=== PATIENT | female | born 1985 | race Two or more races ===

== ENCOUNTER 2018-06-25 15:16 | Emergency (ER) | payer OTHER ==
[~2018-06-25] VITALS: Ht 157.5 cm; Wt 129.5 kg
[2018-06-25] MEDS ORDERED: METOCLOPRAMIDE 5 MG/ML, 2ML IM ONE (16:00)
[2018-06-25] MEDS ORDERED: DIPHENHYDRAMINE 25 MG CAPSULE PO ONE (16:00)
[2018-06-25] MEDS ORDERED: SODIUM CHLORIDE FLUSH 10ML SYR IVF ONE (16:30)
[2018-06-25] MEDS ORDERED: SODIUM CHLORIDE 0.9% 1,000ML IVBOLUS ONE (16:30)
[2018-06-25] MEDS ORDERED: METOCLOPRAMIDE 5 MG/ML, 2ML ONE (16:37)
[2018-06-25] MEDS ORDERED: DIPHENHYDRAMINE 25 MG CAPSULE ONE (16:38)
[2018-06-25] MEDS ORDERED: DIPHENHYDRAMINE 50 MG/ML, 1ML ONE (16:41)
[2018-06-25] MEDS ORDERED: KETOROLAC 30 MG/1 ML IVPush STA (16:52)
[2018-06-25] MEDS ORDERED: METOCLOPRAMIDE 5 MG/ML, 2ML IVPush ONE (17:00)
[2018-06-25] MEDS ORDERED: DIPHENHYDRAMINE 50 MG/ML, 1ML IVPush ONE (17:00)
[2018-06-25 18:06] VITALS: BP 121/73
== END 2018-06-25 19:10 | disposition home or self-care (01) ==
LOC: ED 16:22
DX: G43.C0 Periodic headache syndromes in child or adult, not intractable (principal); G93.5 Compression of brain
CPT/HCPCS: 70450; 96374; 96375; 99285; J1200; J2765; J7030